=== PATIENT | female | born 1980 | race Two or more races ===

== ENCOUNTER 2017-01-10 | Emergency (ER) | payer MEDICAID ==
[~2017-01-10] MED LIST: AMARYL1 MG PO; ASPIRIN EC81 MG PO; AUGMENTIN875 MG PO; DESYREL DPS100 MG PO; GLUCOPHAGE-DPS500 MG PO; LEVAQUIN DPS500 MG PO; LEVEMIR100 UNIT/1 SQ; NORCO 5-325 TA1 EACH PO; TOPAMAX200 MG PO
--- NOTE | 2017-01-13 19:08 | ER ---
ADMIT: 01/10/2017 RM/LOC: ER [facility] MR#: [id number] [place], [place] [id number] SANGITA HANDLEY [address] [address] Emergency Room Report SEX: F AGE: 36 : 1980 DATE: 01/10/2017 HISTORY OF PRESENT ILLNESS: This is a 36-year-old female with vaginal bleeding that started about one day, continues in the emergency room. She has had care and everything had been fine so far. She has had several miscarriages. She is 10 weeks . She is a diabetic type 2, diagnosed in 2004. She has bipolar disorder, migraine. She takes insulin and metformin. 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 She smokes 5 cigarettes a day. PHYSICAL EXAMINATION: VITAL SIGNS: Within normal limits. PELVIC: Active bleeding, [id number]. Blood in the vaginal vault. Unable to visualize the cervix because of the blood and the body habitus. Hemoglobin and hematocrit will be ordered. Beta HCG, she is O negative, and she says in the past, she had to have RhoGAM. At this point, she also is getting wet mount. CLINICAL IMPRESSION: Threatened miscarriage. She will be getting RhoGAM and Dr. Jones will continue the disposition of patient. ADELA López / Kevin Jones MD / shaunl JOB #: [id number] CC: Kevin Jones MD, Attending Physician Liss Jones MD, Family Physician
== END 2017-01-10 02:40 | disposition home or self-care (01) ==
LOC: ER
DX: O20.0 Threatened abortion (principal); O24.111 Pre-existing type 2 diabetes mellitus, in pregnancy, first trimester; E11.9 Type 2 diabetes mellitus without complications; Z3A.10 10 weeks gestation of pregnancy; O99.341 Other mental disorders complicating pregnancy, first trimester; F31.9 Bipolar disorder, unspecified; O99.351 Diseases of the nervous system complicating pregnancy, first trimester; O99.331 Smoking (tobacco) complicating pregnancy, first trimester; F17.210 Nicotine dependence, cigarettes, uncomplicated; Z79.4 Long term (current) use of insulin; Z79.84 Long term (current) use of oral hypoglycemic drugs